=== PATIENT | male | born 1995 | race African-American/Black ===

== ENCOUNTER 2019-09-20 18:24 | Emergency (ER) | payer MEDICAID ==
[~2019-09-20] VITALS: Ht 182.9 cm; Wt 65.0 kg
[2019-09-20 18:35] VITALS: BP 113/67
== END 2019-09-21 00:25 | disposition left against medical advice (07) ==
LOC: ER 18:24
DX: Z53.21 Procedure and treatment not carried out due to patient leaving prior to being seen by health care provider (principal)